=== PATIENT | female | born 1935 | race African-American/Black ===

== ENCOUNTER 2016-10-27 17:48 | Emergency (ER) | payer MEDICARE, OTHER ==
[~2016-10-27 17:48] MED LIST: DOXYCYCLINE150 MG PO; PHENERGAN VC W120 M1 PO
[2016-10-27 20:43] LABS: URINE SOURCE CLEAN CATCH
[2016-10-27 20:50] LABS: BASOPHIL% 0.6 % (0-2.5); EOSINOPHIL% 0.3 % (0.0-7.0); HEMOGLOBIN 12.3 gm/dL (12.0-16.0); LYMPHOCYTE# 2.1 X10e3 (1.0-3.5); LYMPHOCYTE% 34.7 % (17.0-45.0); MEAN CELL VOLUME 92.1 FL (83-96); MEAN CORPUSCULAR HEMOGLOBIN 29.8 PG (28-34); MEAN CORPUSCULAR HGB CONC 32.3 g/dL (30-36); MEAN PLATELET VOLUME 7.8 FL (6.5-11.5); MONOCYTE# 0.3 X10e3 (0-1.0); MONOCYTE% 5.6 % (3.0-12.0); NEUTROPHIL# 3.6 X10e3 (1.5-7.1); NEUTROPHIL% 58.8 % (40-75); PLATELET COUNT 231 X10e3 (140-420); RED BLOOD COUNT 4.12 X10e (3.90-5.30); RED CELL DISTRIBUTION WIDTH 13.2 % (11.0-15.5); WHITE BLOOD COUNT 6.1 X10e3 (4.0-10.5)
[2016-10-27 20:52] LABS: URINE APPEARANCE CLEAR; URINE BILIRUBIN NEG (NEG); URINE BLOOD NEG (NEG); URINE COLOR YELLOW; URINE GLUCOSE NEG (NEG); URINE KETONE NEG (NEG); URINE LEUKOCYTE ESTERASE NEG (NEG); URINE NITRATE NEG (NEG); URINE PH 6.5 (5-8); URINE PROTEIN NEG (NEG); URINE SPECIFIC GRAVITY 1.014 (1.003-1.035); URINE UROBILINOGEN 0.2 MG/DL (NEG)
[2016-10-27 20:57] LABS: CULTURE INDICATED? NO; DIFF IND NO
[2016-10-27 21:13] LABS: BUN/CREATININE RATIO 14.28; CALCIUM SERUM 10.3 mg/dL (8.4-10.2); CREATININE SERUM 0.7 mg/dL (0.6-1.4); GLOM FILT RATE Estimated 96.2 mL/min (>60); POTASSIUM 3.3 mmol/L (3.5-5.1)
== END 2016-10-27 21:48 | disposition home or self-care (01) ==
LOC: CED 17:48
PROVIDERS: Emergency Medicine
DX: R30.0 Dysuria (principal); E11.9 Type 2 diabetes mellitus without complications; I10 Essential (primary) hypertension
CPT/HCPCS: 36415; 80048; 81003; 85025; 87086; 87088; 99283